=== PATIENT | female | born 1995 | race Caucasian/White ===

== ENCOUNTER 2017-05-21 22:45 | Outpatient (CLI) | payer OTHER | END 2017-05-22 01:06 | disposition home or self-care (01) | LOC: OBT 22:45 → L-D 22:47 | DX: O62.9 Abnormality of forces of labor, unspecified (principal); Z3A.38 38 weeks gestation of pregnancy | CPT/HCPCS: Z7500 ==

== ENCOUNTER 2017-05-22 21:29 | Inpatient (IN) | payer OTHER ==
[2017-05-22] MEDS ORDERED: METHYLERGONOVINE 0.2 MG INJ IM (23:00)
[2017-05-22] MEDS ORDERED: OXYTOCIN 30 UNITS/LR 500 ML IV (23:00)
[2017-05-22] MEDS ORDERED: MISOPROSTOL 200 MCG TAB PR (23:00)
[2017-05-22] MEDS ORDERED: IBUPROFEN 600 MG TAB PO (23:00)
[2017-05-22] MEDS ORDERED: CARBOPROST 250 MCG INJ IM (23:00)
[2017-05-22] MEDS ORDERED: LIDOCAINE 1% (MPF) 30 ML INJ INJ (23:00)
[2017-05-22 23:30] LABS: ADD MAN DIFF? NO
[2017-05-22 23:32] LABS: WHITE BLOOD COUNT 13.6 10^3/ul (4.8-10.8)
[2017-05-22 23:32] LABS: BASOPHILS % 0.1 % (0.0-2.0); EOSINOPHILS % 0.1 % (0.0-7.0); HEMATOCRIT 31.8 % (37.0-47.0); HEMOGLOBIN 11.1 g/dl (12.0-16.0); LYMPHOCYTES # 1.6 10^3/ul (0.8-2.9); MEAN CORPUSCULAR HEMOGLOBIN 30.9 pg (29.0-33.0); MEAN CORPUSCULAR HGB CONC 34.9 g/dl (32.0-37.0); MEAN CORPUSCULAR VOLUME 88.6 fl (72.0-104.0); MEAN PLATELET VOLUME 9.3 fl (7.4-10.4); MONOCYTE # 0.9 10^3/ul (0.3-0.9); MONOCYTES % 6.5 % (0.0-13.0); NEUTROPHILS % 80.8 % (30.0-74.0); PLATELET COUNT 240 10^3/UL (140-415); RED BLOOD COUNT 3.59 10^6/ul (4.20-5.40); RED CELL DISTRIBUTION WIDTH 12.8 % (11.5-14.5)
[2017-05-22 23:51] LABS: INR 0.85; PROTIME 11.7 Sec (11.9-14.9); PT RATIO 0.9
[2017-05-22 23:52] LABS: PARTIAL THROMBOPLASTIN TIME 27.5 Sec (25.0-35.0)
[2017-05-23] MEDS: LACTATED RINGER'S 1,000 ML IV ×3 (00:10→02:27)
[2017-05-23] MEDS: BUTORPHANOL 2 MG INJ IV (00:11)
[2017-05-23 00:37] LABS: HEPATITIS B SURFACE ANTIGEN NEGATIVE (NEGATIVE)
[2017-05-23] MEDS ORDERED: FENTAnyl 2MCG/ML-ROPIV 0.2% 100 ML (01:20)
[2017-05-23] MEDS ORDERED: NALOXONE (0.4 MG/ML) INJ IV (01:30)
[2017-05-23] MEDS ORDERED: DIPHENHYDRAMINE 50 MG INJ IV (01:30)
[2017-05-23] MEDS ORDERED: FENTAnyl 2MCG/ML-ROPIV 0.2% 100 ML BAG EPI (01:30)
[2017-05-23] MEDS ORDERED: EPHEDrine SULFATE 50 MG/5 ML SYG IV (01:30)
[2017-05-23] MEDS: ONDANSETRON 4 MG INJ IV (03:26)
[2017-05-23] MEDS ORDERED: MINERAL OIL LIGHT 10 ML VIAL (06:03)
[2017-05-23] MEDS: OXYTOCIN 30 UNITS/LR 500 ML IV ×2 (06:12→06:31)
[2017-05-23] MEDS: MINERAL OIL LIGHT 10 ML VIAL TOP (06:12)
[2017-05-23] MEDS ORDERED: OXYTOCIN 30 UNITS/LR 500 ML IV (08:30)
[2017-05-23] MEDS ORDERED: ZOLPIDEM 5 MG TAB PO (08:30)
[2017-05-23] MEDS ORDERED: METHYLERGONOVINE 0.2 MG INJ IM (08:30)
[2017-05-23] MEDS ORDERED: CARBOPROST 250 MCG INJ IM (08:30)
[2017-05-23] MEDS ORDERED: MISOPROSTOL 200 MCG TAB PR (08:30)
[2017-05-23] MEDS ORDERED: OXYCODONE/ASPIRIN (4.88/325) TAB PO (08:30)
[2017-05-23] MEDS: WITCH HAZEL/GLYCERIN PAD PR (10:07)
[2017-05-23] MEDS: LANOLIN 7 GM TUBE TOP (10:07)
[2017-05-23] MEDS: SENNA/DOCUSATE NA (8.6MG/50MG) TAB PO ×2 (10:07→21:15)
[2017-05-23] MEDS: BENZOCAINE 20% 56 ML SPRAY TOP (10:08)
[2017-05-23] MEDS: IBUPROFEN 600 MG TAB PO ×3 (11:53→23:44)
[2017-05-23 16:52] LABS: RAPID PLASMA REAGIN NONREACTIVE (NR)
[2017-05-24] MEDS: IBUPROFEN 600 MG TAB PO ×4 (05:18→23:31)
[2017-05-24 07:30] LABS: ADD MAN DIFF? NO
[2017-05-24 07:42] LABS: BASOPHILS % 0.2 % (0.0-2.0); EOSINOPHILS % 0.6 % (0.0-7.0); HEMATOCRIT 28.8 % (37.0-47.0); HEMOGLOBIN 9.5 g/dl (12.0-16.0); LYMPHOCYTES % 16.7 % (18.0-55.0); MEAN CORPUSCULAR HEMOGLOBIN 30.5 pg (29.0-33.0); MEAN CORPUSCULAR VOLUME 92.6 fl (72.0-104.0); MEAN PLATELET VOLUME 9.7 fl (7.4-10.4); MONOCYTES % 10.1 % (0.0-13.0); NEUTROPHIL # 9.5 10^3/ul (1.6-7.5); PLATELET COUNT 188 10^3/UL (140-415); RED BLOOD COUNT 3.11 10^6/ul (4.20-5.40); RED CELL DISTRIBUTION WIDTH 13.1 % (11.5-14.5)
[2017-05-24 07:42] LABS: WHITE BLOOD COUNT 13.1 10^3/ul (4.8-10.8)
[2017-05-24 07:43] LABS: EOSINOPHILS # 0.1 10^3/ul (0.0-0.5); LYMPHOCYTES # 2.2 10^3/ul (0.8-2.9); MONOCYTE # 1.3 10^3/ul (0.3-0.9)
[2017-05-24] MEDS: SENNA/DOCUSATE NA (8.6MG/50MG) TAB PO ×2 (08:55→20:57)
[2017-05-24] MEDS: OXYCODONE/ASPIRIN (4.88/325) TAB PO (08:55)
[2017-05-25] MEDS: IBUPROFEN 600 MG TAB PO ×2 (05:32→11:35)
[2017-05-25] MEDS: SENNA/DOCUSATE NA (8.6MG/50MG) TAB PO (08:29)
[2017-05-25] MEDS: DIPHTH/TET/ACEL PERTUSS (ADULT) 0.5 ML VIAL IM* (09:00)
== END 2017-05-25 15:00 | disposition home or self-care (01) | DRG 775 ==
LOC: PP1 05-23 08:58 → OBT 21:29 → L-D 21:30 → OBT 22:06 → L-D 22:06
PROVIDERS: Obstetrics & Gynecology
PROC: 10E0XZZ Delivery of Products of Conception, External Approach (ICD-10-PCS; principal; 2017-05-23)
PROC: 0UQGXZZ Repair Vagina, External Approach (ICD-10-PCS; 2017-05-23)
PROC: 3E033VJ Introduction of Other Hormone into Peripheral Vein, Percutaneous Approach (ICD-10-PCS; 2017-05-23)
DX: O69.81X0 Labor and delivery complicated by cord around neck, without compression, not applicable or unspecified (principal); O71.4 Obstetric high vaginal laceration alone; Z3A.38 38 weeks gestation of pregnancy; Z37.0 Single live birth
CPT/HCPCS: 62319; 85025; 85610; 85730; 86592; 86900; 86901; 87340; 90715

== ENCOUNTER 2017-12-17 20:37 | Emergency (ER) | payer OTHER ==
[2017-12-17] MEDS: AMOXICILLIN 500 MG CAP PO (22:37)
[2017-12-17] MEDS: NAPROXEN 500 MG TAB PO (22:37)
== END 2017-12-17 22:43 | disposition home or self-care (01) ==
LOC: FTE 20:37
DX: K08.89 Other specified disorders of teeth and supporting structures (principal)
CPT/HCPCS: 99284; Z7502

== ENCOUNTER 2018-04-17 13:29 | Emergency (ER) | payer SELFPAY, OTHER | END 2018-04-17 15:17 | disposition left against medical advice (07) | LOC: FTE 15:17 | DX: Z53.21 Procedure and treatment not carried out due to patient leaving prior to being seen by health care provider (principal) ==